=== PATIENT | male | born 1990 | race Caucasian/White ===

== ENCOUNTER 2020-10-21 07:15 | Emergency (ER) | payer OTHER ==
[~2020-10-21] VITALS: Ht 185.4 cm; Wt 81.7 kg
[~2020-10-21 07:15] MED LIST: CRUTCH3 XX; IBUP800 PO; Ultram50 MG PO
[2020-10-21] MEDS ORDERED: VALA500 PO ×2 (08:19→08:21)
[2020-10-21] MEDS ORDERED: Prednisone20 MG PO ×2 (08:19→08:21)
[2020-10-21] MEDS ORDERED: HYDR1TAB94 PO ×2 (08:19→08:21)
[2020-10-21] MEDS ORDERED: LIDO700A20 TOP ×2 (08:19→08:21)
[2020-10-21] MEDS ORDERED: IBUP800 PO ×2 (08:19→08:21)
== END 2020-10-21 08:32 | disposition home or self-care (01) ==
LOC: ER 07:15
DX: B02.9 Zoster without complications (principal)
CPT/HCPCS: 99282

== ENCOUNTER 2021-12-05 21:31 | Emergency (ER) | payer OTHER ==
[~2021-12-05] VITALS: Ht 185.4 cm; Wt 79.4 kg
[~2021-12-05 21:31] MED LIST changes: +HYDR1TAB94 PO; +LIDO700A20 TOP; +Prednisone20 MG PO; +VALA500 PO
[2021-12-05] MEDS ORDERED: AMOCLA875 PO (22:27)
== END 2021-12-05 22:25 | disposition home or self-care (01) ==
LOC: ER 21:31
DX: S81.851A Open bite, right lower leg, initial encounter (principal); Z23 Encounter for immunization; W54.0XXA Bitten by dog, initial encounter; Z79.899 Other long term (current) drug therapy; Z79.52 Long term (current) use of systemic steroids
CPT/HCPCS: 90714; A9270

== ENCOUNTER → 2023-01-26 | Outpatient (CLI) | payer OTHER ==
[~2023-01-26] MED LIST changes: +AMOCLA875 PO
== END ==
LOC: LAB 04:00 → LAB SHORT 04:00
DX: K21.9 Gastro-esophageal reflux disease without esophagitis (principal)
CPT/HCPCS: 87338